=== PATIENT | female | born 1990 | race Caucasian/White ===

== ENCOUNTER 2018-01-09 08:43 | Inpatient (IN) | payer OTHER ==
[2018-01-09] VITALS (20 sets, daily range): BP systolic 106–123; BP diastolic 63–84; BMI 31.9
[~2018-01-09] VITALS: Ht 160 cm; Wt 81.3 kg
--- NOTE | ~2018-01-09 | EC ---
PATIENT:MARILU PATIÑO DATE OF SERVICE: 01/09/18 SEX: F MEDICAL RECORD: [id number] DATE OF : [birth year] LOCATION:[place] [address] AGE OF PATIENT: 27 ADMISSION DATE: 01/09/18 REFERRING PHYSICIAN: INTERPRETING PHYSICIAN: ROBERTO FRANCES MD ECHOCARDIOGRAM REPORT ECHO CHARGES 4 ECHO COMPLETE Date: 01/09 CLINICAL DIAGNOSIS: SADDLE PE/DVT ECHOCARDIOGRAPHIC MEASUREMENTS (adult normal given) AC root (d.<3.7cm) 3.1 cm LV Septum d (<1.2 cm> 1.4 cm Valve Excursion 1.3 cm LV Septum (systole) 1.6 cm Left Atria (s.<4.0cm> 3.2 cm LVPW d(<1.2cm) 1.1 cm RV (d.<2.3cm) 2.8 cm LVPW (sytole) 1.5 cm LV diastole(<5.6CM) 4.3 cm MV E-F(>70mm/sec) cm LV systole 2.6 cm LVOT Diameter 1.9 cm MV exc.(>10mm) 1.6 cm Est.ejection fraction (50-75%) % DOPPLER: LVIT cm/sec A 89.0 cm/sec E 103 cm/sec LA cm/sec RVSP 28 mmHg LVOT 107 cm/sec AOP1/2T m/s Asc. Ao 153 cm/sec RVOT 83 cm/sec RA cm/sec PA 122 cm/sec AV Gradient Peak 9.41 mmHg AV Mean 4.04 mmHg AV Area 2.0 cm MV Gradient Peak 4.74 mmHg MV Mean 1.95 mmHg MV Area cm COMMENTS: Digital Art Director: Tiff LINDSAY Salvage Clerk: 4 Dr. Frances TAPE# PACS Pericardial Effusion Y DATE OF SERVICE: PROCEDURE: Transthoracic echocardiogram. FINDINGS: 1. Left ventricle is hyperdynamic. Ejection fraction 65%. Normal size, shape, structure, and function. 2. The left atrium is normal. 3. The mitral valve is normal. 4. The tricuspid valve is normal. ECHOCARDIOGRAM REPORT [id number] MARILU PATIÑO 5. The right ventricle is normal size, shape, structure, and function. 6. The right atrium is normal. There is a trace pericardial effusion, but no evidence of tamponade physiology. Otherwise, normal echocardiogram for the patient's stated age. TRANSINT:[id number] Voice Confirmation ID: [id number] DOCUMENT ID: [id number] ROBERTO FRANCES MD at 1120 CC: [id number] DICTATION DATE: 01/10/18 1521 SHUTTLE FILLER: 01/10/18 1541 ADM IN [place] [id number] [place] [address]
--- NOTE | ~2018-01-09 | HP ---
PATIENT: MARILU PATIÑO MEDICAL RECORD: [id number] ACCOUNT: [id number] LOCATION:[facility] : 88 ADMISSION DATE: 01/09/18 HISTORY AND PHYSICAL EXAMINATION REASON FOR ADMISSION: Chest pains. HISTORY OF PRESENT ILLNESS: The patient is a 27-year-old 1 female, who works as a construction quality control manager at [employer]. She states that she has had a history of 3 DVTs in her past history, one occurring after she was . She also has a strong family history of factor V deficiency with her father, mother, and sister all having that diagnosis and having had DVTs and her dad had PE. She says she went to [facility] 2 weeks ago and had some discomfort and swelling in her left upper leg. They did an ultrasound, which showed superficial DVT and since she was on Xarelto sent her home. She had increasing swelling and pain in her left leg for the last week and became very painful to walk, for that reason she came to the Emergency Room today. When questioned, she did admit to some chest discomfort today and slight cough, but no hemoptysis or shortness of breath. Repeat ultrasound showed DVT in the left upper saphenous vein. Her O2 sat was 98% on room air. A CTA was performed due to her complaint of chest pain showing bilateral pulmonary emboli with significant clot load. For that reason, she is now being admitted to the ICU for stat echo and pulmonary consult with Dr. Multani. PAST MEDICAL HISTORY: DVT times 3, asthma. SURGICAL HISTORY: Had 1 wisdom tooth removed. FAMILY HISTORY: Mother with history of factor V deficiency and DVT. Father with factor V deficiency and PE, DVT. One sister with factor V deficiency. ALLERGIES: TO ELIQUIS CAUSING HEADACHE AND PENICILLIN CAUSING RASH. SOCIAL HISTORY: She is . She is a nonsmoker and nondrinker. 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 HOME MEDICATIONS: Proventil inhaler p.r.n. REVIEW OF SYSTEMS: GENERAL: No fatigue or fever. HEENT: No recent visual change, sinus congestion, or sore throat. She does wear glasses to read. RESPIRATORY: She has had some tightness in her chest today and pain on deep inspiration anteriorly, but no shortness of breath or hemoptysis, only minimal dry cough. CARDIAC: No palpitations, PND, orthopnea. She has had edema in her left leg as admission for 2 weeks, worse in the last several days. GASTROINTESTINAL: No nausea, vomiting, change in stools or blood per rectum. GENITOURINARY: No incontinence. GYNECOLOGIC: No vaginal bleeding or missed periods. 1. MUSCULOSKELETAL: Denies lumbago or joint pain. Has had pain in her left leg due to edema and swelling. Hurts to walk. NEUROLOGIC: Denies history of vascular headaches, motor or sensory deficits, memory loss or seizures. INTEGUMENT: No rash. HISTORY AND PHYSICAL [id number] MARILU PATIÑO PSYCHIATRIC: Denies depressed mood. PHYSICAL EXAMINATION: VITAL SIGNS: O2 sat is 98% on room air, pulse is 90 and regular, blood pressure 110/70. She is afebrile. Respiratory rate is 13. GENERAL: Alert and oriented, in no acute distress, at rest. HEENT: Normocephalic. Eyes are clear. NECK: Unremarkable, without bruits or masses or JVD. CHEST: She has faint wheezes on forced expiration and pain on deep inspiration anteriorly. No crackles were noted. HEART: Regular rate and rhythm without murmur. ABDOMEN: Soft, nontender. EXTREMITIES: She has a positive Homans sign, which is straightening her left leg at the knee. She has 2+ edema in the left lower extremity below the knee. She has tenderness to palpation in the saphenous vein and the inner thigh to the level of the knee. NEUROLOGIC: She is oriented to person, place, and time. Cranial nerves intact. Gait was not tested due to pain in the leg. INTEGUMENT: No petechiae appreciated. LABORATORY DATA: Shows a white count of 6600, H&H of 14.8 and 43.0 with normal differential. Potassium is 3.4, platelet count 150,000. BUN and creatinine are normal. Liver functions normal. Beta hCG is negative. Venous Doppler left lower extremity shows DVT extending from the mid aspect of the superficial femoral vein to the posterior tibial vein with partially occlusive thrombus in the proximal superficial femoral vein. CT of the chest, PE Protocol. There is extensive bilateral pulmonary emboli and extending into the left upper lobe lingula, left lower lobe, right lower lobe, right middle lobe of the lung. 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 ASSESSMENT: 1. Bilateral pulmonary emboli. 2. DVT, left lower extremity. 3. 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 4. Hypokalemia. 5. History of asthma. PLAN: The patient will be admitted to the ICU when bed is available. She has been consulted and recommends Lovenox therapy at this time until emergent echo was resulted. Further workup pending clinical course. All procedures and potential therapy were explained to the patient and her . TRANSINT:[id number] Voice Confirmation ID: [id number] DOCUMENT ID: [id number] HISTORY AND PHYSICAL [id number] MARILU PATIÑO TIMOTHY MD at 0707 CC: [id number] DICTATION DATE: 01/09/18 173 MIXED LIVESTOCK FARM WORKER: 01/09/18 1850 ADM IN [facility] [address] [place] [id number]
[2018-01-09 14:13] LABS: HCG SERUM NEGATIVE (NEGATIVE)
[2018-01-09 14:19] LABS: ALBUMIN 3.3 g/dL (3.4-5.0); ALKALINE PHOSPHATASE 65 U/L (46-116); ALT (SGPT) 23 U/L (10-68); BILIRUBIN - TOTAL 0.94 mg/dL (0.2-1.3); CALC OSMOLALITY 275 mosm/kg (275-300); CALCIUM 8.8 mg/dL (8.5-10.1); CARBON DIOXIDE 28.7 mmol/L (21.0-32.0); CHLORIDE - SERUM 103 mmol/L (98-107); CREATININE - SERUM 0.9 mg/dL (0.6-1.3); GLUCOSE 89 mg/dL (74-106); POTASSIUM - SERUM 3.4 mmol/L (3.5-5.1); PROTEIN - SERUM 7.9 g/dL (6.4-8.2); SODIUM 140 mmol/L (136-145); UREA NITROGEN 8 mg/dL (7-18); eGFR NON AFRICAN AMERICAN 79 mL/min (90-120)
[2018-01-09 14:27] LABS: BASOPHILS 0.5 % (0-2); EOSINOPHILS 2.4 % (0-7); HEMOGLOBIN 14.8 g/dL (12-16); IMMATURE GRANULOCYTES 0.3 % (0-5); LYMPHOCYTES 22.2 % (15-50); MCH 32.1 pg (26.0-34.0); MCHC 34.4 g/dL (31.0-37.0); MCV 93.3 fL (80.0-100.0); MONOCYTES 7.1 % (2-11); NEUTROPHILS 67.5 % (40-80); PLATELET COUNT 150 10x3/uL (130-400); RBC 4.61 10x6/uL (4.00-5.40); RDW 13.5 % (11.5-14.5); WBC 6.6 10x3/uL (4.8-10.8)
[2018-01-10] VITALS (24 sets, daily range): BP systolic 98–114; BP diastolic 60–74
[2018-01-10 04:48] LABS: BASOPHILS 0.2 % (0-2); EOSINOPHILS 1.9 % (0-7); HEMATOCRIT 38.4 % (36.0-48.0); HEMOGLOBIN 13.2 g/dL (12-16); IMMATURE GRANULOCYTES 0.2 % (0-5); LYMPHOCYTES 35.9 % (15-50); MCH 32.1 pg (26.0-34.0); MCHC 34.4 g/dL (31.0-37.0); MCV 93.4 fL (80.0-100.0); MEAN PLATELET VOLUME 10.2 fL (7.4-10.4); MONOCYTES 7.9 % (2-11); NEUTROPHILS 53.9 % (40-80); PLATELET COUNT 120 10x3/uL (130-400); RBC 4.11 10x6/uL (4.00-5.40); RDW 13.7 % (11.5-14.5); WBC 5.3 10x3/uL (4.8-10.8)
[2018-01-10 04:49] LABS: INR 1.14 (0.85-1.17); PROTIME 14.2 SECONDS (11.6-15.0)
[2018-01-10 04:54] LABS: CALC OSMOLALITY 278 mosm/kg (275-300); CALCIUM 7.9 mg/dL (8.5-10.1); CARBON DIOXIDE 28.3 mmol/L (21.0-32.0); CHLORIDE - SERUM 107 mmol/L (98-107); CREATININE - SERUM 0.8 mg/dL (0.6-1.3); GLUCOSE 92 mg/dL (74-106); MAGNESIUM - SERUM 2.1 mg/dL (1.8-2.4); PHOSPHOROUS 3.5 mg/dL (2.5-4.9); POTASSIUM - SERUM 3.3 mmol/L (3.5-5.1); SODIUM 141 mmol/L (136-145); UREA NITROGEN 7 mg/dL (7-18); eGFR NON AFRICAN AMERICAN 90 mL/min (90-120)
[2018-01-10] MEDS ORDERED: XARELTO20 MG PO (17:27)
[2018-01-11] VITALS (24 sets, daily range): BP systolic 93–118; BP diastolic 58–77
[2018-01-11 04:41] LABS: APTT 28.1 SECONDS (22.8-39.4); INR 1.05 (0.85-1.17); PROTIME 13.3 SECONDS (11.6-15.0)
[2018-01-11 04:50] LABS: BASOPHILS 0.6 % (0-2); EOSINOPHILS 2.7 % (0-7); HEMATOCRIT 38.5 % (36.0-48.0); HEMOGLOBIN 12.7 g/dL (12-16); LYMPHOCYTES 39.6 % (15-50); MCH 31.8 pg (26.0-34.0); MEAN PLATELET VOLUME 10.4 fL (7.4-10.4); NEUTROPHILS 48.1 % (40-80); RDW 13.9 % (11.5-14.5); WBC 5.2 10x3/uL (4.8-10.8)
[2018-01-11 04:51] LABS: POTASSIUM - SERUM 4.6 mmol/L (3.5-5.1)
[2018-01-11 04:54] LABS: MCV 96.3 fL (80.0-100.0); PLATELET COUNT 153 10x3/uL (130-400)
[2018-01-11 07:23] LABS: HAPTOGLOBIN 197 mg/dL (34-200)
[2018-01-12] VITALS (25 sets, daily range): BP systolic 94–118; BP diastolic 57–72
[2018-01-12 06:40] LABS: BASOPHILS 0.4 % (0-2); EOSINOPHILS 2.9 % (0-7); HEMATOCRIT 36.8 % (36.0-48.0); HEMOGLOBIN 12.3 g/dL (12-16); IMMATURE GRANULOCYTES 0.2 % (0-5); LYMPHOCYTES 35.7 % (15-50); MCH 31.9 pg (26.0-34.0); MCHC 33.4 g/dL (31.0-37.0); MCV 95.6 fL (80.0-100.0); MEAN PLATELET VOLUME 9.2 fL (7.4-10.4); MONOCYTES 5.6 % (2-11); NEUTROPHILS 55.2 % (40-80); PLATELET COUNT 160 10x3/uL (130-400); RBC 3.85 10x6/uL (4.00-5.40); RDW 13.6 % (11.5-14.5); WBC 4.9 10x3/uL (4.8-10.8)
[2018-01-12 07:27] LABS: CALC OSMOLALITY 276 mosm/kg (275-300); CALCIUM 8.2 mg/dL (8.5-10.1); CARBON DIOXIDE 26.5 mmol/L (21.0-32.0); CHLORIDE - SERUM 106 mmol/L (98-107); CREATININE - SERUM 0.8 mg/dL (0.6-1.3); GLUCOSE 94 mg/dL (74-106); POTASSIUM - SERUM 4.1 mmol/L (3.5-5.1); SODIUM 141 mmol/L (136-145); UREA NITROGEN 2 mg/dL (7-18); eGFR NON AFRICAN AMERICAN 90 mL/min (90-120)
[2018-01-12 08:32] LABS: INR 1.12 (0.85-1.17)
[2018-01-12 10:08] LABS: PROTEIN S - FREE 142 % (57-157); PROTEIN S - TOTAL 85 % (60-150)
[2018-01-12 14:08] LABS: PROTEIN S - FREE 142 % (57-157); PROTEIN S - FUNCTIONAL 131 % (63-140); PROTEIN S - TOTAL 81 % (60-150)
[2018-01-13] VITALS (25 sets, daily range): BP systolic 91–110; BP diastolic 52–72
[2018-01-13 04:52] LABS: BASOPHILS 0.6 % (0-2); EOSINOPHILS 2.4 % (0-7); HEMATOCRIT 37.7 % (36.0-48.0); HEMOGLOBIN 12.5 g/dL (12-16); IMMATURE GRANULOCYTES 0.2 % (0-5); LYMPHOCYTES 32.6 % (15-50); MCH 31.5 pg (26.0-34.0); MCHC 33.2 g/dL (31.0-37.0); MEAN PLATELET VOLUME 9.5 fL (7.4-10.4); MONOCYTES 6.3 % (2-11); NEUTROPHILS 57.9 % (40-80); RBC 3.97 10x6/uL (4.00-5.40); RDW 13.5 % (11.5-14.5); WBC 4.9 10x3/uL (4.8-10.8)
[2018-01-13 04:56] LABS: CALC OSMOLALITY 275 mosm/kg (275-300); CALCIUM 8.3 mg/dL (8.5-10.1); CARBON DIOXIDE 29.8 mmol/L (21.0-32.0); CHLORIDE - SERUM 104 mmol/L (98-107); CREATININE - SERUM 0.7 mg/dL (0.6-1.3); GLUCOSE 90 mg/dL (74-106); MAGNESIUM - SERUM 1.9 mg/dL (1.8-2.4); PHOSPHOROUS 3.7 mg/dL (2.5-4.9); PLATELET COUNT 193 10x3/uL (130-400); POTASSIUM - SERUM 3.9 mmol/L (3.5-5.1); SODIUM 140 mmol/L (136-145); eGFR NON AFRICAN AMERICAN > 90 mL/min (90-120)
[2018-01-13 05:05] LABS: UREA NITROGEN 4 mg/dL (7-18)
[2018-01-13 12:12] LABS: ACLA - IGG AB <9 GPL U/mL (0-14); ACLA - IGM AB 9 MPL U/mL (0-12)
[2018-01-13 13:15] LABS: HEXAGONAL PHASE PHOS 9 sec (0-11); LUPUS - INTERPRETATION Comment: (()); LUPUS - THROMBIN TIME 15.8 sec (0.0-23.0); LUPUS - dRVVT 47.9 sec (0.0-47.0); PTT-LA 55.2 sec (0.0-51.9); PTT-LA INCUB MIX 54.4 sec (0.0-48.9); PTT-LA MIX 48.9 sec (0.0-48.9)
[2018-01-14] VITALS (23 sets, daily range): BP systolic 93–115; BP diastolic 52–77
[2018-01-14 02:58] LABS: BASOPHILS 0.4 % (0-2); EOSINOPHILS 1.7 % (0-7); HEMATOCRIT 37.9 % (36.0-48.0); HEMOGLOBIN 12.7 g/dL (12-16); IMMATURE GRANULOCYTES 0.2 % (0-5); LYMPHOCYTES 28.2 % (15-50); MCH 31.7 pg (26.0-34.0); MCHC 33.5 g/dL (31.0-37.0); MCV 94.5 fL (80.0-100.0); MEAN PLATELET VOLUME 9.2 fL (7.4-10.4); MONOCYTES 7.1 % (2-11); NEUTROPHILS 62.4 % (40-80); PLATELET COUNT 191 10x3/uL (130-400); RBC 4.01 10x6/uL (4.00-5.40); RDW 13.3 % (11.5-14.5); WBC 5.2 10x3/uL (4.8-10.8)
[2018-01-14 03:11] LABS: INR 1.24 (0.85-1.17); PROTIME 15.1 SECONDS (11.6-15.0)
[2018-01-14 14:23] LABS: PROTEIN C - ANTIGEN 43 % (60-150); PROTEIN C - FUNCTIONAL 40 % (73-180)
[2018-01-15] VITALS (22 sets, daily range): BP systolic 98–120; BP diastolic 58–82; Ht 160 cm; Wt 81.3 kg
[2018-01-15 04:51] LABS: BASOPHILS 0.6 % (0-2); HEMATOCRIT 35.7 % (36.0-48.0); HEMOGLOBIN 12.2 g/dL (12-16); IMMATURE GRANULOCYTES 0.2 % (0-5); LYMPHOCYTES 36.7 % (15-50); MCH 32.1 pg (26.0-34.0); MCHC 34.2 g/dL (31.0-37.0); MCV 93.9 fL (80.0-100.0); MEAN PLATELET VOLUME 9.8 fL (7.4-10.4); MONOCYTES 6.9 % (2-11); NEUTROPHILS 52.6 % (40-80); PLATELET COUNT 214 10x3/uL (130-400); RDW 13.4 % (11.5-14.5)
[2018-01-15 05:16] LABS: INR 1.57 (0.85-1.17); PROTIME 18.3 SECONDS (11.6-15.0)
[2018-01-16] VITALS (14 sets, daily range): BP systolic 97–117; BP diastolic 53–75
[2018-01-16 04:13] LABS: BASOPHILS 0.9 % (0-2); EOSINOPHILS 3.7 % (0-7); HEMATOCRIT 37.4 % (36.0-48.0); HEMOGLOBIN 12.5 g/dL (12-16); IMMATURE GRANULOCYTES 0.2 % (0-5); LYMPHOCYTES 44.3 % (15-50); MCH 31.6 pg (26.0-34.0); MCHC 33.4 g/dL (31.0-37.0); MCV 94.4 fL (80.0-100.0); MEAN PLATELET VOLUME 9.4 fL (7.4-10.4); MONOCYTES 6.4 % (2-11); NEUTROPHILS 44.5 % (40-80); PLATELET COUNT 214 10x3/uL (130-400); RBC 3.96 10x6/uL (4.00-5.40); RDW 13.2 % (11.5-14.5); WBC 4.4 10x3/uL (4.8-10.8)
[2018-01-16 04:23] LABS: PROTIME 21.2 SECONDS (11.6-15.0)
[2018-01-16 04:28] LABS: INR 1.9 (0.85-1.17)
[2018-01-16 20:09] LABS: FACTOR II DNA ANALYSIS Negative (())
[2018-01-17 00:36] VITALS: BP 98/57
[2018-01-17 04:56] LABS: BASOPHILS 0.7 % (0-2); EOSINOPHILS 3.4 % (0-7); HEMATOCRIT 37.1 % (36.0-48.0); HEMOGLOBIN 12.4 g/dL (12-16); LYMPHOCYTES 44.3 % (15-50); MCH 31.2 pg (26.0-34.0); MCHC 33.4 g/dL (31.0-37.0); MCV 93.5 fL (80.0-100.0); MEAN PLATELET VOLUME 9.3 fL (7.4-10.4); MONOCYTES 8.7 % (2-11); NEUTROPHILS 42.9 % (40-80); PLATELET COUNT 204 10x3/uL (130-400); RBC 3.97 10x6/uL (4.00-5.40); RDW 13.1 % (11.5-14.5); WBC 4.2 10x3/uL (4.8-10.8)
[2018-01-17 05:03] LABS: PROTIME 24.6 SECONDS (11.6-15.0)
[2018-01-17 05:05] LABS: INR 2.3 (0.85-1.17)
[2018-01-17 05:31] VITALS: BP 93/51
[2018-01-17 07:00] VITALS: BP 105/65
[2018-01-17] MEDS ORDERED: LOVENOX80 MG/0.8 SC (07:22)
[2018-01-17] MEDS ORDERED: PROTONIX40 MG PO (07:23)
[2018-01-17] MEDS ORDERED: COUMADIN5 MG PO (07:23)
[2018-01-17] MEDS ORDERED: PROVENTIL HFA6.7 GM INH (07:30)
== END 2018-01-17 15:53 | disposition home or self-care (01) | DRG 176 ==
LOC: D.ER 08:43 → D.ICU 16:27 → D.M2 16:27 → D.CVICU 16:27 → D.M2 01-16 13:57
PROVIDERS: Family Medicine; Internal Medicine Hematology & Oncology; Internal Medicine Pulmonary Disease
DX: I26.92 Saddle embolus of pulmonary artery without acute cor pulmonale (principal); I82.402 Acute embolism and thrombosis of unspecified deep veins of left lower extremity; D68.59 Other primary thrombophilia; D69.6 Thrombocytopenia, unspecified; E87.6 Hypokalemia; R00.0 Tachycardia, unspecified; J45.909 Unspecified asthma, uncomplicated; R09.1 Pleurisy; R07.89 Other chest pain; Z83.2 Family history of diseases of the blood and blood-forming organs and certain disorders involving the immune mechanism

== ENCOUNTER → 2019-11-09 12:44 | Outpatient (CLI) | payer OTHER ==
[2018-01-15 21:25] VITALS: BMI 33.1
[~2019-11-09 12:44] MED LIST: COUMADIN5 MG PO; LOVENOX80 MG/0.8 SC; PROTONIX40 MG PO; PROVENTIL HFA6.7 GM INH; XARELTO20 MG PO
== END | disposition home or self-care (01) ==
LOC: D.NM 12:44
PROVIDERS: ATTEND Family Medicine
DX: R10.11 Right upper quadrant pain (principal)